=== PATIENT | female | born 1935 | race Caucasian/White ===

== ENCOUNTER 2019-11-24 17:22 | Emergency (ER) | payer MEDICARE, MEDICAID ==
[~2019-11-24] VITALS: Ht 167.6 cm; Wt 73.0 kg
[2019-11-24] MEDS ORDERED: IV NS 0.9% 1,000 ML BAG IV ONE ×2 (17:30→19:00)
[2019-11-24] MEDS ORDERED: INSULIN REGULAR, HUMAN 100 UNIT/ML 10 ML VIAL IV ONE (17:30)
--- NOTE | 2019-11-24 17:33 | NUR ---
PT UNRESPONSIVE AND PULSELESS. CPR INITITATED.
--- NOTE | 2019-11-24 17:35 | NUR ---
FIRST EPI 1:1000 GIVEN IVP. RESUMED CPR.
--- NOTE | 2019-11-24 17:37 | NUR ---
PT INTUBATED SIZE 7.5. 21 CM AT THE LIP. POSITIVE COLOR CHANGED AND VISIBLE CHEST RAISE.
--- NOTE | 2019-11-24 17:37 | NUR ---
PULSE CHECKED. NO RESPONSE SECOND EPI 1:1000 GIVEN IVP. RESUMED CPR.
--- NOTE | 2019-11-24 17:39 | NUR ---
PULSE CHECKED. NO RESPONSE THIRD EPI 1:1000 GIVEN IVP. RESUMED CPR.
--- NOTE | 2019-11-24 17:40 | NUR ---
SODIUM BICARB GIVEN IVP.
--- NOTE | 2019-11-24 17:41 | NUR ---
PULSE CHECKED. ROSC ESTABLISHED.
--- NOTE | 2019-11-24 17:43 | NUR ---
SENIOR RADIATION PROTECTION TECHNICIAN AT BEDSIDE FOR XRAY.
[2019-11-24] MEDS ORDERED: PROPOFOL 100 ML ONE (17:53)
--- NOTE | 2019-11-24 17:58 | NUR ---
MOVE SHEET SUBMITTED AND CALLED FOR ICU BED.
[2019-11-24] MEDS ORDERED: PROPOFOL 100 ML IV PRN (18:00)
[2019-11-24 18:01] LABS: BASOPHILS # (AUTO) 0.1 /CMM (0.0-0.2); BASOPHILS % (AUTO) 0.8 % (0.0-2.0); EOSINOPHILS % (AUTO) 0.1 % (0.0-6.0); HEMATOCRIT 28 % (33-45); HEMOGLOBIN 8.5 g/dL (11.5-14.8); LYMPHOCYTES % (AUTO) 38.9 % (20.0-44.0); MEAN CORPUSCULAR HGB CONC 30 g/dl (31.0-36.0); MEAN CORPUSCULAR VOLUME 100 fL (82-100); MONOCYTES % (AUTO) 7.5 % (2.0-12.0); NEUTROPHILS # (AUTO) 6.7 /CMM (1.8-8.9); NEUTROPHILS % (AUTO) 52.7 % (43.0-81.0); PLATELET COUNT (AUTO) 138 /CMM (150-450); RED BLOOD CELL COUNT(AUTO) 2.82 MIL/uL (4.0-5.2); WHITE BLOOD COUNT (AUTO) 12.7 K/uL (4.3-11.0)
--- NOTE | 2019-11-24 18:04 | NUR ---
[facility] CALLED
--- NOTE | 2019-11-24 18:09 | NUR ---
FAXED OVER FACE SHEET TO [facility] [phone]
--- NOTE | 2019-11-24 18:19 | NUR ---
FAXED BOTH EKG TO [facility]
[2019-11-24] MEDS ORDERED: INSULIN REGULAR, HUMAN 100 UNIT/ML 10 ML VIAL ONE (18:21)
--- NOTE | 2019-11-24 18:25 | NUR ---
SPOKE WITH [facility] [phone] VIOLET GOT OUR EKG AND HAS CONTACTED CARDIO DR. HOFFMAN AND WILL CALL US BACK
[2019-11-24 18:26] LABS: SERUM AMMONIA 37 umol/L (11-32)
[2019-11-24 18:29] LABS: ALANINE AMINOTRANSFERASE 658 U/L (12-78); ALBUMIN 1.7 g/dL (3.4-5.0); ALCOHOL, BLOOD < 3 mg/dL (0-0); ALKALINE PHOSPHATASE 39 U/L (46-116); ASPARTATE AMINOTRANSFERASE 645 U/L (15-37); BILIRUBIN,DIRECT 0.2 mg/dL (0.0-0.2); BILIRUBIN,TOTAL 0.6 mg/dL (0.2-1.0); CALCIUM, SERUM 6.2 mg/dL (8.5-10.1); CARBON DIOXIDE 11 mmol/L (21-32); CHLORIDE 114 mmol/L (98-107); CREATININE 1.6 mg/dL (0.6-1.3); POTASSIUM 3.1 mmol/L (3.5-5.1); SODIUM SERUM 149 mmol/L (136-145); UREA NITROGEN, BLOOD 19 mg/dL (7-18)
[2019-11-24 18:41] LABS: GLUCOSE 494 mg/dL (74-106)
--- NOTE | 2019-11-24 18:41 | NUR ---
SPOKE WITH VIOLET AT [facility]S CARDIO NAME IS DR. CHINCHILLA AND WILL CALL US BACK.
[2019-11-24] MEDS ORDERED: CHOL500062 MT (18:50)
[2019-11-24] MEDS ORDERED: LORA-259 MT (18:50)
[2019-11-24] MEDS ORDERED: AZIL40TA MT (18:50)
[2019-11-24] MEDS ORDERED: EMPA10TA MT (18:50)
[2019-11-24] MEDS ORDERED: SITA100T MT (18:50)
[2019-11-24] MEDS ORDERED: GLIM4TAB MT (18:50)
[2019-11-24] MEDS ORDERED: EPINEPHRINE (1:10,000) SYRINGE 1 MG/10 ML DISP.SYRIN ONE (19:00)
[2019-11-24] MEDS ORDERED: SODIUM BICARBONATE SYR 50 MEQ/50 ML DISP.SYRIN ONE (19:00)
--- NOTE | 2019-11-24 19:06 | NUR ---
STOPPED DIPRIVAN TITRATION DUE TO LOW BP PER DR. HOUSTON. GIVEN 1L OF NS IV, PT ROSE WELL. WILL CONT TO MONITOR.
--- NOTE | 2019-11-24 19:07 | NUR ---
Paged [facility] for panel
--- NOTE | 2019-11-24 19:13 | NUR ---
called house sup for picc line insertion and aware
--- NOTE | 2019-11-24 19:13 | NUR ---
ROOM 250
[2019-11-24] MEDS ORDERED: ALBUMIN 25% 100 ML IV ONE (19:15)
--- NOTE | 2019-11-24 19:15 | NUR ---
PT PULSELESS, CPR INITIATED. DR. HOUSTON & RT @ BS.
[2019-11-24] MEDS ORDERED: ATROPINE SULFATE 1 MG/10 ML DISP.SYRIN ONE (19:16)
--- NOTE | 2019-11-24 19:16 | NUR ---
EPI 1:1000 GIVEN IVP. RESUMED CPR.
--- NOTE | 2019-11-24 19:17 | NUR ---
SODIUM BICARD IVP GIVEN. RESUMED CPR.
--- NOTE | 2019-11-24 19:19 | NUR ---
PULSE CHECKED. NO RESPONSE SECOND EPI 1:1000 GIVEN IVP. RESUMED CPR.
--- NOTE | 2019-11-24 19:22 | NUR ---
PULSE CHECKED. NO RESPONSE THIRD EPI 1:1000 GIVEN IVP. RESUMED CPR.
--- NOTE | 2019-11-24 19:24 | NUR ---
PULSE CHECKED, RESUME CPR.
--- NOTE | 2019-11-24 19:25 | NUR ---
PULSE CHECKED. ROSC ESTABLISHED. WILL CONT TO MONITOR.
[2019-11-24 19:26] LABS: BAND % (MANUAL) 2 % (0.0-5.0); EOSINOPHILS % (MANUAL) 1 % (0-4); LYMPHOCYTES % (MANUAL) 38 % (16-48); MONOCYTES % (MANUAL) 7 % (0-11.0); NEUTROPHILS % (MANUAL) 51 (42-76); REACTIVE LYMPHOCYTES 1 % (0-0)
[2019-11-24] MEDS ORDERED: ALBUMIN 25% 12.5 GM/50 ML BOTTLE IV ONE (19:30)
--- NOTE | 2019-11-24 19:32 | NUR ---
RT called for rt stat/code blue to er bed 5 for pt. pt was disconnected from vent and bagged with ambu bag during cpr. post rosc, pt was placed back on vent. will continue to monitor.
[2019-11-24 19:58] LABS: THYROID STIMULATING HORMONE 2.636 uIU/mL (0.358-3.74)
[2019-11-24] MEDS ORDERED: PHENYLEPHRINE 50 MG in IV NS 0.9% 250 ML IV PRN (20:00)
[2019-11-24] MEDS ORDERED: NOREPINEPHRINE 8 MG in IV NS 0.9% 250 ML IV PRN (20:00)
[2019-11-24] MEDS ORDERED: NOREPINEPHRINE 4 MG/4 ML AMPUL IV ONE (20:04)
[2019-11-24 20:10] VITALS: BP 93/53
[2019-11-24 20:27] LABS: ABG BASE EXCESS -28.7 mmol/L; ABG OXYGEN SATURATION 96.5 % (92.0-98.5); ABG PCO2 34.2 mmHg (35.0-45.0); ABG PO2 168.9 mmHg (75.0-100.0); AaDO2 509.9 mmHg; COHb 0.3 % (0.5-1.5); MetHb 0.6 % (0.0-1.5); O2Hb 95.6 % (94.0-97.0); SITE, ABG Left Radial; VENT MODE, BG AC 20 500100% 5+
--- NOTE | 2019-11-24 20:51 | NUR ---
PT FOUND HR TRENDING DOWN, DR. HOUSTON @ BS & PT BECAME ASYSTOLE. TIME OF [address] HOUSTON.
--- NOTE | 2019-11-24 21:04 | NUR ---
[facility] REPORTED. NOT CLINICAL ASSOCIATE'S CASE PER MANUEL.
--- NOTE | 2019-11-24 21:13 | NUR ---
[facility] CALLED AND REPORTED. SPOKE WITH LUIGI. #[phone]
--- NOTE | 2019-11-24 21:30 | NUR ---
FAMILY MEMBERS AT BS.
--- NOTE | 2019-11-24 23:00 | NUR ---
PT SENT TO [facility] – [place].
== END 2019-11-24 23:06 | disposition expired ==
LOC: ER 17:27 → UNDOADMIN 20:12 → ICU 20:12 → ER 23:06
DX: I46.9 Cardiac arrest, cause unspecified (principal); I21.9 Acute myocardial infarction, unspecified; E11.9 Type 2 diabetes mellitus without complications; Z79.899 Other long term (current) drug therapy
CPT/HCPCS: 31500; 36415; 36600; 51702; 71045; 80048; 80076; 80307; 82140; 83605; 84443; 84484; 85007; 85025; 85730; 87040 ×2; 87081; 92950; 93005; 96361; 96365; 96368; 96375; 99291; J0171; J0461; J1815; J3490 ×2; J7030; J7050; P9047